=== PATIENT | female | born 1990 | race Asian ===

== ENCOUNTER → 2024-07-23 10:34 | Outpatient (REF) | payer BC, SELFPAY | LOC: PNTC 10:34 | PROVIDERS: ATTENDING PHYSICIAN Obstetrics & Gynecology | DX: O36.8190 Decreased fetal movements, unspecified trimester, not applicable or unspecified (principal) | CPT/HCPCS: 59025; 76815 ==

== ENCOUNTER → 2024-07-31 09:30 | Outpatient (REF) | payer BC, SELFPAY | LOC: PNTC 09:30 | PROVIDERS: ATTENDING PHYSICIAN Obstetrics & Gynecology | DX: O36.5990 Maternal care for other known or suspected poor fetal growth, unspecified trimester, not applicable or unspecified (principal) | CPT/HCPCS: 76816 ==

== ENCOUNTER 2024-08-14 05:57 | Inpatient (IN) | payer BC, SELFPAY ==
[2024-08-14 06:15] VITALS: BP 115/71; BMI 24.1
[2024-08-14 07:46] LABS: % Basophils 0.4 % (0-2); % Eosinophils 1.4 % (0-6); % Monocytes 5.7 % (1.7-9.3); % Neutrophils 73.5 % (42.2-75.2); Absolute Eosinophils 0.1 10^3/uL (0-0.7); Absolute Immature Granulocytes 0.1 10^3/uL (0-0.05); Absolute Lymphocytes 1.4 10^3/uL (1.2-3.4); Absolute Monocytes 0.4 10^3/uL (0.1-0.6); Absolute Neutrophils 5.7 10^3/uL (1.4-6.5); Hematocrit 39.4 % (37.0-47.0); Hemoglobin 13.9 g/dL (12.0-16.0); Mean Corp Hgb Conc. 35.3 g/dL (33.0-37.0); Mean Corpuscular Hgb 31.4 pg (27.0-31.0); Mean Corpuscular Volume 88.9 fL (81.0-99.0); Mean Platelet Volume 11.7 fL (7.4-10.4); Nucleated Red Blood Cells % 0 %; Platelet Count 183 10^3/uL (130-400); Red Blood Cell Count 4.43 10^6/uL (4.20-5.40); Red Cell Dist. Width 13.2 % (11.5-14.5); White Blood Cell Count 7.7 10^3/uL (4.8-10.8)
[2024-08-14] MEDS: SUBLIMAZE 100 MCG EPIDURAL (11:01)
[2024-08-14] MEDS: FENTANYL/BUPIVACAINE 100 EPIDURAL (11:01)
[2024-08-14] MEDS: LR 1000 IV (11:48)
[2024-08-14] MEDS: MOTRIN 600 MG PO (23:12)
--- NOTE | 2024-08-15 04:04 | DOWNTIME ---
There was a [email or web address] Client [employer] Downtime on 08/15/2024 from 0100 to 08/15/2024 at 0355. Downtime documentation of patient's care, including medication administrations, has been reconciled in the electronic record per guidelines. Refer to the
patient's paper chart under the miscellaneous tab to see printed paper medication records and downtime forms.
[2024-08-15 05:00] LABS: Hematocrit 35.8 % (37.0-47.0); Hemoglobin 12.7 g/dL (12.0-16.0)
[2024-08-15] MEDS: MOTRIN 600 MG PO ×3 (06:34→23:44)
[2024-08-15] MEDS: PRENATAL PLUS 1 TABLET PO (08:28)
[2024-08-15] MEDS: SENOKOT-S 1 TABLET PO (08:28)
[2024-08-15] MEDS: TYLENOL 650 MG PO ×3 (11:37→23:45)
[2024-08-16] MEDS: SENOKOT-S 1 TABLET PO (09:01)
[2024-08-16] MEDS: PRENATAL PLUS 1 TABLET PO (09:01)
[2024-08-16] MEDS: HYDROCORTISONE 1% CREAM 1 APPLIC TOPICAL (10:24)
[2024-08-16] MEDS: TYLENOL 650 MG PO (12:09)
[2024-08-16] MEDS: MOTRIN 600 MG PO (12:11)
[2024-08-17 16:26] LABS: Syphilis/T. pallidum Ab Reflex Negative (Negative)
== END 2024-08-16 13:13 | disposition home or self-care (01) | DRG 807 ==
LOC: LDRP 05:57
PROVIDERS: Obstetrics & Gynecology; ADMITTING PHYSICIAN Obstetrics & Gynecology; ATTENDING PHYSICIAN Obstetrics & Gynecology; FAMILY PHYSICIAN Family Medicine
PROC: 0KQM0ZZ Repair Perineum Muscle, Open Approach (ICD-10-PCS; 2024-08-14)
PROC: 4A1HXCZ Monitoring of Products of Conception, Cardiac Rate, External Approach (ICD-10-PCS; 2024-08-14)
PROC: 10D07Z6 Extraction of Products of Conception, Vacuum, Via Natural or Artificial Opening (ICD-10-PCS; 2024-08-14)
DX: O66.8 Other specified obstructed labor (principal); Z37.0 Single live birth; O70.1 Second degree perineal laceration during delivery; O77.0 Labor and delivery complicated by meconium in amniotic fluid; Z3A.39 39 weeks gestation of pregnancy
CPT/HCPCS: 88307; 85014; 85018; 85025; 86780; 86850; 86900; 86901

== ENCOUNTER → 2025-10-23 07:00 | Outpatient (REF) | payer BC, SELFPAY | LOC: PAVMRI 07:00 | PROVIDERS: ATTENDING PHYSICIAN Student in an Organized Health Care Education/Training Program; FAMILY PHYSICIAN Family Medicine | DX: M54.50 Low back pain, unspecified (principal); M54.16 Radiculopathy, lumbar region; M51.362 Other intervertebral disc degeneration, lumbar region with discogenic back pain and lower extremity pain | CPT/HCPCS: 72148 ==